=== PATIENT | female | born 1945 | race Caucasian/White ===

== ENCOUNTER 2016-09-06 23:41 | Emergency (ER) | payer MEDICARE, OTHER ==
[~2016-09-06] VITALS: Ht 162.6 cm; Wt 77.3 kg
[~2016-09-06 23:41] MED LIST: IBUP-1827 PO
[2016-09-06 23:43] VITALS: BP 133/47; PULSE 76; RESP 17; O2SAT 100
[2016-09-07 00:20] LABS: BASOPHILS % (AUTO) 0.2 % (0-3); EOSINOPHILS % (AUTO) 1.5 % (0-5); MONOCYTES % (AUTO) 5.9 % (4-12); Mean Corpuscular Hemoglobin 32.4 pg (27.0-35.0); NEUTROPHILS % (AUTO) 88.6 % (40-74); Platelet Count 193 bil/L (150-400)
[2016-09-07 00:35] LABS: Magnesium 2.1 mg/dL (1.6-2.6)
--- NOTE | 2016-09-07 01:24 | ED.REPORT ---
HPI-NVD Date of Service September 07, 2016 ED Provider: Aguilar De Guzman MD Pt is a 71 y.o. female with hx of IBS who presents to the ED via EMS c/o vomiting onset 2100. Pt reports associated nausea, diarrhea, chills, and mild abdominal pain. She denies hematochezia. She states that prior to the onset of her sx she didn't feel "well". Nursing Notes Stated Complaint: NAUSEA AND DIARRHEA Chief Complaint: Female Abdominal Pain Nursing Notes Reviewed: Yes Allergies: Coded Allergies: iodine (Verified Allergy, Unknown, iv especially, 04/23/16) minocycline (Verified Allergy, Unknown, 04/23/16) pseudoephedrine (Verified Allergy, Unknown, anxiety, 04/23/16) Scheduled Metoclopramide (Metoclopramide) 10 Mg Tablet 10 MG PO TID Scheduled PRN Ibuprofen (Ibuprofen) 600 Mg Tablet 600 MG PO QID PRN PRN For Pain General Time Seen by MD: 01:06 Chief Complaint Vomiting Hx Obtained From: Patient Arrived By: Ambulance Onset Occurred: 1 - 4 hours ago Symptom Duration: Since onset Location: : Diffuse Quality: Painful Severity: Current: Mild Past Medical History Past Medical History arthritis rosasia constipation irritable bowel anxiety left hip bursitis Past Surgical History none reported Smoking History Unknown if Ever Smoker Social History Other Social History: Good social support, Ambulatory Status Independent Review of Systems Constitutional: Reports: Chills GI: Reports: Abdominal pain, Diarrhea, Nausea, Vomiting, Denies: Hematochezia Complete sys rev & neg: except as marked. Physical Exam Initial Vital Signs Vital Signs (First) Date Time Temp Pulse Resp B/P Pulse Ox O2 Delivery O2 Flow Rate FiO2 09/06/16 23:43 36.5 76 17 133/47 100 Room Air Initial VS: Reviewed, Vital signs normal Head / Eyes: Atraumatic, Normocephalic, PERRL Extremities: Vascular intact, Neuro intact Skin: Warm, Dry, No cyanosis Neurologic: Alert, Oriented, Nonfocal Psychiatric: Mood/affect normal, Behavior normal, Normal thought content General/Constitutional: Awake, Alert, No acute distress, Well appearing, Well developed, Well hydrated, Well nourished, Not toxic appearing Abdomen: Atraumatic, Soft, Non-tender, No distention Respiratory / Chest: Atraumatic, Breath sounds NL, No respiratory distress Cardiovascular: Heart rate NL, Regular rhythm, Heart sounds NL, Peripheral circulation NL Interpretation & Diagnostics Lab Results Interpretation Result Diagram: 09/07/16 0000 09/07/16 0000 Test 09/07/16 00:00 White Blood Count 10.6th/mm3 (3.8-10.1) Red Blood Count 4.29mil/mm3 (3.90-5.20) Hemoglobin 13.9g/dL (12.0-15.6) Hematocrit 41.6% (35.0-46.0) Mean Corpuscular Volume 97.0fL (81-100) Mean Corpuscular Hemoglobin 32.4pg (27.0-35.0) Mean Corpuscular Hemoglobin Concent 33.4% (32.0-37.0) Red Cell Distribution Width 13.1% (12.3-15.4) Platelet Count 193bil/L (150-400) Neutrophils (%) (Auto) 88.6% (40-74) Lymphocytes (%) (Auto) 3.6% (14-46) Monocytes (%) (Auto) 5.9% (4-12) Eosinophils (%) (Auto) 1.5% (0-5) Basophils (%) (Auto) 0.2% (0-3) Sodium Level 143mEq/L (134-144) Potassium Level 3.9mEq/L (3.5-5.2) Chloride Level 102mEq/L (97-108) Carbon Dioxide Level 24mmol/L (18-29) Blood Urea Nitrogen 17mg/dL (8-27) Creatinine 0.95mg/dL (0.57-1.00) Estimat Glomerular Filtration Rate 83mL/min (>59) Glucose Level 116mg/dL (60-99) Calcium Level 9.2mg/dL (8.5-10.1) Magnesium Level 2.1mg/dL (1.6-2.6) Total Bilirubin 0.4mg/dL (0.0-1.2) Aspartate Amino Transf (AST/SGOT) 21U/L (0-50) Alanine Aminotransferase (ALT/SGPT) 19U/L (0-32) Alkaline Phosphatase 87U/L (25-165) Total Protein 7.4g/dL (6.4-8.4) Albumin 4.9g/dL (3.4-5.0) Lipase 20U/L (13-60) Lab values outside NL range: no clinical significance. Lab Results Interpretation: Mildly elevated white blood count ECG Interpretation Time: 00:16 Interpreted by: ED physician Normal ECG Interpretation: Normal rate (79), Normal sinus rhythm, No acute ischemic changes, Normal QRS, Normal intervals Re-Eval/Medical Decision Med Decision/Clinical Course 71-year-old female with nausea, vomiting, diarrhea of one days duration and mild dehydration. Her labs are essentially normal. Her symptoms were controlled with ondansetron, Reglan, and Imodium. She was discharged home with a prescription for Reglan. She is to follow up with her primary doctor. Source of Hx: Old records Re-Evaluation/Progress #1: Time of Eval: 02:34 Re-Evaluation/Progress Note: Pt was administered immodium PO and proceeded to vomit. IV immodium will be ordered. Re-Evaluation/Progress #2: Time of Eval: 05:15 Re-Evaluation/Progress Note: Pt rechecked. Pt is feeling improved. Discussed plan for discharge, pt understands and agrees with plan. Counseled Regarding: Diagnosis, Lab results, Need for follow-up, When/why to return to ED Discharge & Departure Impression: Primary Impression: Nausea vomiting and diarrhea Disposition: Home Discharge Condition All VS Reviewed: Yes Condition: Improved Patient Instructions: Gastroenteritis (ED) Additional Instructions: Your symptoms are mostly likely due to a viral gastroenteritis. Metoclopramide (Reglan) 10 mg 3 times daily as needed for nausea and vomiting, #15 prescription written. Imodium as needed for diarrhea, to be purchased over-the- counter and take it according to the label. Follow up if he has persistent or bloody diarrhea, persistent vomiting or you get increasing abdominal pain. Referrals: Jakub Vu MD (PCP) Brice Attestation Portions of this note were transcribed by Luz Marina Soto. I, personally performed the history, physical exam and medical decision-making; I reviewed and confirmed the accuracy of the information in the transcribed note. Signed by: Brice Kong, 09/07/16 and 0517. copies to: Jakub Vu MD, Howard L MD September 07, 2016 01:24 LUZ MARINA SOTO September 07, 2016 01:32
[2016-09-07] MEDS: Ondansetron 2 mg/mL 2 mL Inj IVPUSH PRN ×2 (02:50→04:00)
[2016-09-07 02:57] VITALS: BP 128/92; PULSE 100; RESP 20; O2SAT 96
[2016-09-07] MEDS ORDERED: MetoCLOpramide 5 mg/mL 2 mL Inj IVPUSH ONE (03:45)
[2016-09-07] MEDS ORDERED: 0.9% Sodium Chloride 50 ML ONE (03:49)
[2016-09-07] MEDS ORDERED: METO10TA3 PO (05:37)
[2016-09-07 05:44] VITALS: BP 113/57; PULSE 84; RESP 20; O2SAT 95
== END 2016-09-07 05:37 | disposition home or self-care (01) ==
LOC: SED 23:41 → EDUNIT# 23:41 → EDBD 23:41 → SED 09-07 05:37
DX: R11.2 Nausea with vomiting, unspecified (principal); R19.7 Diarrhea, unspecified; R68.83 Chills (without fever); R10.9 Unspecified abdominal pain; Z88.8 Allergy status to other drugs, medicaments and biological substances; Z88.1 Allergy status to other antibiotic agents
CPT/HCPCS: 36415; 80053; 83690; 83735; 85025; 93005; 96374; 96375; 96376; 99285; J2405; J2765